=== PATIENT | male | born 1985 | race Caucasian/White ===

== ENCOUNTER 2016-10-25 07:40 | Emergency (ER) | payer BC ==
[2016-10-25] MEDS ORDERED: Sodium Chloride 0.9% 1000 ML 1,000 ML IV STA (07:55)
[2016-10-25] MEDS ORDERED: TORAdol 30 mg Injection IV ONE (07:55)
--- NOTE | 2016-10-25 08:00 | ERPHSYRPT ---
- History of Present Illness Time Seen by Provider: 10/25/16 07:52 Historian: patient Exam Limitations: no limitations Patient Subjective Stated Complaint: PT REPORTS WAKING UP TO SEVERE RIGHT SIDED ABD PAIN-REPORTS N/V-UNSURE OF FEVER-DENIES REBOUND TENDERNESS Triage Nursing Assessment: PT PALE DIAPHORETIC UPON ARRIVAL-ABD TENDER TO PALP- BWOEL SOUNDS PRESENT-RESP NONLABORED Physician History: This is a 31-year-old white male with history of chronic granulomatous disease arrives with complaint of right-sided lower abdominal pain right flank pain symptoms since 5:30 this morning patient states pain is sharp severe he's had nausea and vomiting no diarrhea no melena no hematochezia. Past medical history includes chronic granulomatous disease. Past surgical history includes lymph node biopsy. Timing/Duration: today (5:30 this morning) Activities at Onset: other (patient had just woken up) Quality: cramping, stabbing Abdominal Pain Onset Location: RLQ, other (right flank) Pain Radiation: flank (right flank) Severity of Pain-Max: moderate Severity of Pain-Current: moderate Modifying Factors: Improves With: nothing Associated Symptoms: back, nausea, vomiting, No chest pain, No diaphoresis, No diarrhea, No fever/chills, No fatigue, No headache, No heartburn, No loss of appetite, No neck pain, No rash, No shortness of breath, No syncope, No testicular pain, No weakness Previous symptoms: no prior history Allergies/Adverse Reactions: No Known Drug Allergies Allergy (Verified 10/25/16 07:49) Home Medications: Itraconazole 0 mg PO BID 08/07/16 [History] Sulfamethoxazole/Trimethoprim [Bactrim Ds Tablet] 1 each PO BID 08/07/16 [ History] Hx Tetanus, Diphtheria Vaccination/Date Given: Yes Hx Influenza Vaccination/Date Given: No Hx Pneumococcal Vaccination/Date Given: No Immunizations Up to Date: Yes - Review of Systems Constitutional: No Fever, No Chills Eyes: No Symptoms Ears, Nose, & Throat: No Symptoms Respiratory: No Cough, No Dyspnea Cardiac: No Chest Pain, No Edema, No Syncope Abdominal/Gastrointestinal: Abdominal Pain (right lower quadrant pain), No Nausea, No Vomiting, No Diarrhea Genitourinary Symptoms: No Dysuria Musculoskeletal: No Back Pain, No Neck Pain Skin: No Rash Neurological: No Dizziness, No Focal Weakness, No Sensory Changes Psychological: No Symptoms Endocrine: No Symptoms All Other Systems: Reviewed and Negative - Past Medical History Pertinent Past Medical History: Yes Other Medical History: cgd - Past Surgical History Past Surgical History: Yes Other Surgical History: lymph node biopsy - Social History Smoking Status: Never smoker Exposure to second hand smoke: No Drug Use: none Patient Lives Alone: No - Nursing Vital Signs Nursing Vital Signs: Initial Vital Signs Temperature 98.4 F Temperature Source Oral Pulse Rate 50 Respiratory Rate 20 Blood Pressure [] 137/79 Pain Intensity 4 - Physical Exam SpO2: 100 Oxygen Delivery: Room Air - Course Nursing assessment & vital signs reviewed: Yes - CT Exams Abdomen/Pelvis CT Interpretation: Discussed w/radiologist, Other (CT abdomen and pelvis: 1. 2- 3 mm urinary bladder calculus with mild right-sided hydronephrosi prominence from recent passage. Additional right renal micro-calculus. 2. Scattered centimeter/subcentimet,. Aortic, and bilateral inguinal nodes along with splenomegaly. Findings possibly reactive but cannot exclude malignancy in the right clinical setting. 3. Indeterminate tiny subpleural calcified nodules) Ordered Tests: Active Orders 24 hr Category Date Time Status IV Insertion STAT Care 10/25/16 07:55 Active ABDOMEN AND PELVIS W/0 CONTRAS [CT] Stat Exams 10/25/16 07:56 Completed AMYLASE Stat Lab 10/25/16 07:55 Completed CBC W DIFF Stat Lab 10/25/16 07:55 Completed CMP Stat Lab 10/25/16 07:55 Completed LIPASE Stat Lab 10/25/16 07:55 Completed UA W/ MICROSCOPIC Stat Lab 10/25/16 07:56 Completed Medication Summary Discontinued Medications Generic Name Dose Route Start Last Admin Trade Name Malini PRN Reason Stop Dose Admin Sodium Chloride 1,000 mls @ 999 mls/hr 10/25/16 07:55 10/25/16 08:13 Sodium Chloride 0.9% 1000 Ml IV 10/25/16 08:55 999 mls/hr .Q1H1M STA Administration Sodium Chloride Confirm 10/25/16 08:10 Sodium Chloride 0.9% 1000 Ml Administered 10/25/16 08:11 Dose 1,000 mls @ ud .ROUTE .STK-MED ONE Ketorolac Tromethamine 30 mg 10/25/16 07:55 10/25/16 08:13 Toradol 30 Mg Injection IV 10/25/16 07:56 30 mg STAT ONE Administration Ketorolac Tromethamine Confirm 10/25/16 08:10 Toradol 30 Mg Injection Administered 10/25/16 08:11 Dose 30 mg .ROUTE .STK-MED ONE Lab/Rad Data: Laboratory Result Diagrams 10/25/16 07:55 10/25/16 07:55 Laboratory Results 10/25/16 10/25/16 10/25/16 Range/Units 07:56 07:55 07:55 WBC 9.6 (4.0-10.5) K/mm3 RBC 5.03 (4.1-5.6) M/mm3 Hgb 15.8 (12.5-18.0) gm/dl Hct 44.3 (42-50) % MCV 88.1 (78-100) fl MCH 31.4 (26-32) pg MCHC 35.7 (32-36) g/dl RDW 12.8 (11.5-14.0) % Plt Count 234 (150-450) K/mm3 MPV 10.5 H (6-9.5) fl Gran % 68.1 H (36.0-66.0) % Lymphocytes % 22.1 L (24.0-44.0) % Monocytes % 9.3 (0.0-12.0) % Eosinophils % 0.4 (0.00-5.0) % Basophils % 0.1 (0.0-0.4) % Basophils # 0.01 (0-0.4) Sodium 141 (136-145) mEq/L Potassium 3.6 (3.5-5.1) mEq/L Chloride 103 (98-107) mEq/L Carbon Dioxide 25.5 (21-32) mEq/L Anion Gap 16.1 H (5-15) MEQ/L BUN 12 (9-20) mg/dL Creatinine 1.13 (0.55-1.30) mg/dl Estimated GFR > 60 ML/MIN Glucose 159 H (70-110) MG/DL Calcium 9.2 (8.5-10.1) mg/dL Total Bilirubin 0.7 (0.2-1.0) mg/dL AST 13 L (15-37) U/L ALT 16 (12-78) U/L Alkaline Phosphatase 134 H (46-116) U/L Serum Total Protein 8.6 H (6.4-8.2) gm/dL Albumin 4.4 (3.4-5.0) g/dL Amylase 43 (25-115) U/L Lipase 99 (73-393) U/L Ur Collection Type CCMS Urine Color YELLOW (YELLOW) Urine Appearance CLOUDY (CLEAR) Urine pH 5.5 (5-6) Ur Specific [place] >=1.030 (1.005-1.025) Urine Protein 30 (Negative) Urine Glucose (UA) NEGATIVE (NEGATIVE) mg/dL Urine Ketones NEGATIVE (NEGATIVE) Urine Nitrite NEGATIVE (NEGATIVE) Urine Bilirubin SMALL (NEGATIVE) Urine Urobilinogen NORMAL (0-1) mg/dL Urine WBC (Auto) NEGATIVE (NEGATIVE) Urine RBC (Auto) MODERATE (0-5) Jonas/ul Urine Microscopic RBC 2-5 (0-2) /HPF Urine Microscopic WBC 0-2 (0-5) /HPF Ur Epithelial Cells FEW (FEW) /HPF Amorphous Crystals MANY (NEGATIVE) /HPF Urine Bacteria MANY (NEGATIVE) /HPF Specimen Received 10/25 0800 - Progress Progress: improved Progress Note: 10/25/16 09:30 Patient feeling better patient's CT shows a 2-3 mm urinary bladder calculus with mild right-sided hydronephrosis and minimal ureteral prominence from recent passage There are also scattered centimeters/subcentimeter mesenteric periaortic and bilateral inguinal nodes along with splenomegaly. Findings possibly reactive but cannot exclude malignancy of the right clinical setting (patient with chronic CGD) Suspect this is likely the cause of the patient's abnormal findings however Will have patient follow-up with his family doctor. Will plan to have patient return home strain his urine we'll write for [place] for pain. - Departure Time of Disposition: 09:31 Departure Disposition: Home Clinical Impression: Right sided abdominal pain, Right flank pain Urolithiasis Qualifiers: Urinary calculus location: bladder Qualified Code(s): N21.0 - Calculus in bladder Condition: Fair Critical Care Time: No Instructions: Abdominal Pain-Adult Additional Instructions: Return home. Strain all urine. Plenty of fluids. [place] 5/325 #15 one orally every 4-6 hours as needed for pain. Follow-up with your family doctor call for an appointment. Return for acute distress or for severe symptoms. You have changes on your CT which need to be followed up please follow-up with your family doctor. Return for acute distress or for severe symptoms Prescriptions: Hydrocodone Bit/Acetaminophen [[place] 5/325Mg] 1 each PO Q4-6HPRN PRN #15 tablet PRN Reason: Pain
[2016-10-25] MEDS ORDERED: Sodium Chloride 0.9% 1000 ML 1,000 ML ONE (08:10)
[2016-10-25] MEDS ORDERED: TORAdol 30 mg Injection ONE (08:10)
[2016-10-25 08:32] LABS: BASOPHIL % 0.1 % (0.0-0.4); Eosinophil % 0.4 % (0.00-5.0); Granulocytes % 68.1 % (36.0-66.0); Lymphocytes % 22.1 % (24.0-44.0); Mean Cell Volume 88.1 fl (78-100); Mean Corpuscular Hemoglobin 31.4 pg (26-32); Mean Platelet Volume 10.5 fl (6-9.5); Monocytes % 9.3 % (0.0-12.0); Platelet Count 234 K/mm3 (150-450); Red Blood Count 5.03 M/mm3 (4.1-5.6); Red Cell Distribution Width 12.8 % (11.5-14.0); White Blood Count 9.6 K/mm3 (4.0-10.5)
[2016-10-25 08:44] LABS: COMPLETE URINE MICROSCOPIC? YES; Collection Type CCMS; Ph 5.5 (5-6)
[2016-10-25 08:45] LABS: Bacteria MANY /HPF (NEGATIVE); Epithelial Cells FEW /HPF (FEW); WBC 0-2 /HPF (0-5)
[2016-10-25 08:49] LABS: ALBUMIN 4.4 g/dL (3.4-5.0); ALKALINE PHOSPHATASE 134 U/L (46-116); ANION GAP 16.1 MEQ/L (5-15); BILIRUBIN,TOTAL 0.7 mg/dL (0.2-1.0); BLOOD UREA NITROGEN 12 mg/dL (9-20); CHLORIDE 103 mEq/L (98-107); Carbon Dioxide 25.5 mEq/L (21-32); Glucose 159 MG/DL (70-110); LIPASE 99 U/L (73-393); Potassium 3.6 mEq/L (3.5-5.1); SGOT/AST 13 U/L (15-37); SGPT/ALT 16 U/L (12-78); SODIUM 141 mEq/L (136-145); Total Protein 8.6 gm/dL (6.4-8.2)
--- NOTE | 2016-10-25 09:23 | XRAY ---
Indication: Right-sided abdomen/flank pain. Multiple contiguous axial images obtained through the abdomen and pelvis without contrast using renal stone protocol. Comparison: None Lung bases demonstrates tiny indeterminant sub-5 mm noncalcified subpleural nodules in both lower lobes. No infiltrate, consolidation, or effusion. Heart is not enlarged. 2-3 mm calculus in the posterior right urinary bladder lumen. Right ureter is slightly prominent along with mild hydronephrosis presumed from recent passage of said calculus. No perinephric fluid or stranding. Additional punctate calculus in the right inferior pole. There are scattered mesenteric, periaortic, and bilateral inguinal centimeter/subcentimeter nodes. 15 cm splenomegaly. Noncontrasted stomach and bowel loops appear nonobstructed. Normal appendix. No free fluid/air. Remaining liver, gallbladder, pancreas, spleen, adrenal glands, left kidney, left ureter, and aorta appear unremarkable for noncontrast exam. Osseous structures intact. Impression: 1. 2-3 mm urinary bladder calculus with mild right-sided hydronephrosis and minimal ureteral prominence from recent passage. Additional right renal micro-calculus. 2. Scattered centimeter/subcentimeter mesenteric, periaortic, and bilateral inguinal nodes along with splenomegaly. Findings possibly reactive but cannot completely exclude malignancy in the right clinical setting. 3. Indeterminant tiny subpleural noncalcified nodules. CT DI 17.80
[2016-10-25 09:55] VITALS: BP 124/64; PULSE 78; O2SAT 97
== END 2016-10-25 09:54 | disposition home or self-care (01) ==
LOC: ED 07:40
DX: N21.0 Calculus in bladder (principal); R10.31 Right lower quadrant pain
CPT/HCPCS: 36000; 36415; 74176; 80053; 81000; 82150; 83690; 85025; 96360; 96374; 99283; J1885